=== PATIENT | male | born 1950 | race Caucasian/White ===

== ENCOUNTER 2024-08-01 06:12 | Day surgery (SDC) | payer OTHER ==
[2024-07-25 12:11] VITALS: BMI 30.7
[2024-08-01 10:54] VITALS: TEMP 98
[2024-08-01 11:31] VITALS: PULSE 63
[2024-08-01 11:33] VITALS: BP 116/72; RESP 15
== END 2024-08-01 11:43 | disposition home or self-care (01) ==
LOC: JASU-ENDO 06:12
PROVIDERS: ATTEND Internal Medicine Gastroenterology
PROC: 0DJD8ZZ Inspection of Lower Intestinal Tract, Via Natural or Artificial Opening Endoscopic (ICD-10-PCS; principal; 2024-08-01 10:00)
DX: Z12.11 Encounter for screening for malignant neoplasm of colon (principal); D12.2 Benign neoplasm of ascending colon; K52.0 Gastroenteritis and colitis due to radiation; K64.8 Other hemorrhoids; K57.30 Diverticulosis of large intestine without perforation or abscess without bleeding